=== PATIENT | male | born 1980 | race African-American/Black ===

== ENCOUNTER 2020-10-09 18:51 | Inpatient (IN) ==
[2020-10-09] MEDS ORDERED: fentaNYL citrate 100 MCG/2 ML VIAL IV PRN (19:00)
[2020-10-09] MEDS ORDERED: SODIUM CHLORIDE 0.9% 1000ML 1,000 ML IV SCH (19:00)
[2020-10-09 19:16] LABS: Basophils # (auto) 0.01 K/uL (0-0.2); Basophils % (auto) 0.2 %; Eosinophils # (auto) 0.08 K/uL (0-0.5); Eosinophils % (auto) 1.8 %; Hematocrit (blood only) 46.6 % (42-52); Hemoglobin 15.9 g/dL (14.0-18.0); Lymphocytes # (auto) 1.33 K/uL (1.2-3.4); Lymphocytes % (auto) 29.6 %; Mean Corpuscular Hemoglobin 29.9 pg (25-34); Mean Corpuscular Hgb Conc 34.1 g/dL (32-36); Mean Corpuscular Volume 87.8 fL (80-100); Mean Platelet Volume 11.6 fL (7.4-10.4); Monocytes # (auto) 1.03 K/uL (0.11-0.59); Monocytes % (auto) 22.9 %; Neutrophils # (auto) 2.04 K/uL (1.4-6.5); Neutrophils % (auto) 45.5 %; Platelet Count 225 K/uL (130-400); RDW Coefficient of Variation 13.6 % (11.5-14.5); RDW Standard Deviation 43.9 fL (36.4-46.3); Red Blood Count 5.31 M/uL (4.7-6.1); White Blood Count 4.49 K/uL (4.8-10.8)
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
[2020-10-09 19:27] LABS: INR 1.1 (0.9-1.1); Partial Thromboplastin Ratio 1.1
[2020-10-09 19:38] LABS: Alanine Aminotransferase 31 U/L (12-78); Albumin Level 3.9 gm/dl (3.4-5.0); Aspartate Aminotransferase 17 U/L (15-37); BUN Creatinine Ratio 7.9 (10-20); Blood Urea Nitrogen 9 mg/dl (7-18); Calcium 9.2 mg/dl (8.5-10.1); Carbon Dioxide 30 mmol/L (21-32); Chloride 107 mmol/L (98-107); Creatinine Clr Calc Pharmacy 75.6 ml/min; Est GFR (African American) 97.1; Est GFR (Non-African American) 83.8; Glucose 81 mg/dl (70-99); Lipase 82 U/L (73-393); Sodium 139 mmol/L (136-145)
[2020-10-09] MEDS ORDERED: OPTIRAY 350 500ml IV ONE (19:41)
[2020-10-09 19:52] LABS: Albumin Globulin Ratio 0.9 (0.9-2); Alkaline Phosphatase 66 U/L (45-117); Bilirubin,Total 0.9 mg/dl (0.2-1); Globulin 4.4 gm/dl (2.5-4.0); Total Protein 8.3 gm/dl (6.4-8.2); Troponin I < 0.015 ng/ml (0-0.045)
--- NOTE | 2020-10-09 19:54 | CT Scan Report ---
CT OF THE HEAD WITHOUT CONTRAST CLINICAL HISTORY: syncope COMPARISON STUDY: No previous studies for comparison. TECHNIQUE: Helical axial images of the head were obtained without IV contrast. Automated exposure con trol was utilized for the study. A dose lowering technique was utilized adhering to the principles o f ALARA. FINDINGS: No acute intracranial hemorrhage, midline shift or mass effect is present. The ventricular system is unremarkable. The basal cisterns are patent. No extra-axial collections are present. There are no findings to suggest acute dural sinus thrombosis or acute territorial infarct. No significant calvarial abnormalities are present. Visualized portions of the sinuses and mastoid air cells are francisco ar. IMPRESSION: 1. No acute intracranial findings. 2. No calvarial fracture. ACT 112: Negative or not required by law. Electronically signed by: Philip King M.D. 10/09/2020 7:53 PM
--- NOTE | 2020-10-09 19:57 | CT Scan Report ---
CT OF THE CERVICAL SPINE WITHOUT CONTRAST CLINICAL HISTORY: Syncope. COMPARISON STUDY: No previous studies for comparison. TECHNIQUE: Helical axial images of the cervical spine were obtained without IV contrast. Sagittal a nd coronal reconstructions were viewed. Automated exposure control was utilized for the study. A do se lowering technique was utilized adhering to the principles of ALARA. FINDINGS: There is reversal of the normal cervical lordosis. Vertebral body heights are maintained. N o acute cervical spine fracture or subluxation is present. There is no prevertebral edema. Facet join ts are intact. Mild multilevel disc space narrowing and moderate anterior osteophytosis of the cervi timoteo spine is noted. IMPRESSION: No acute cervical spine fracture or subluxation. ACT 112: Negative or not required by law. Electronically signed by: Philip King M.D. 10/09/2020 7:56 PM
[2020-10-09] MEDS ORDERED: ONDANSETRON INJ 2 MG/ML 2 ML VIAL IV STA (20:00)
[2020-10-09] MEDS ORDERED: cefTRIAXone SODIUM 1,000 MG/50 ML BAG IV STA (20:20)
[2020-10-09] MEDS ORDERED: PANTOprazole 40 MG in SYRINGE 0 ML IV ONE (20:20)
[2020-10-09] MEDS ORDERED: FAMOTIDINE 20MG IV PUSH 20 MG/5 ML SYR IV STA (20:20)
[2020-10-09] MEDS ORDERED: ONDANSETRON INJ 2 MG/ML 2 ML VIAL IV PRN (21:20)
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
[2020-10-09 21:40] LABS: Influenza A virus by PCR Negative (Neg); Influenza B virus by PCR Negative (Neg); RSV by PCR Negative (Neg); SARS CoV2 RNA(COVID-19) InHosp NEGATIVE (Negative)
[2020-10-09 22:50] LABS: Appearance Urine Clear (Clear); Bilirubin Urine Negative (Negative); Blood Urine Negative (Negative); Color Urine Yellow; Glucose Urine UA Negative (Negative); Ketones Urine Negative (Negative); Leukocyte Esterase Urine Negative (Negative); Nitrite Urine Negative (Negative); Protein Urine Negative (Negative); Specific Gravity Urine > 1.045 (1.000-1.030); Urobilinogen Urine Negative (Negative); pH Urine 5.5 (4.5-7.5)
[2020-10-09] MEDS ORDERED: LEVALBUTEROL TARTRATE 15 GM HFA.AER.AD INH PRN (23:13)
[2020-10-09] MEDS: LACTATED RINGER'S 1,000 ML IV SCH (23:19)
[2020-10-10 06:21] LABS: Eosinophils # (auto) 0.09 K/uL (0-0.5); Eosinophils % (auto) 1.9 %; Hematocrit (blood only) 44.8 % (42-52); Hemoglobin 15.1 g/dL (14.0-18.0); Immature Granulocytes # (auto) 0.01 K/uL (0.00-0.02); Immature Granulocytes % (auto) 0.2 %; Lymphocytes # (auto) 1.14 K/uL (1.2-3.4); Lymphocytes % (auto) 24.5 %; Mean Corpuscular Hemoglobin 29.8 pg (25-34); Mean Corpuscular Hgb Conc 33.7 g/dL (32-36); Mean Corpuscular Volume 88.5 fL (80-100); Mean Platelet Volume 11.4 fL (7.4-10.4); Monocytes # (auto) 1.05 K/uL (0.11-0.59); Monocytes % (auto) 22.6 %; Neutrophils # (auto) 2.36 K/uL (1.4-6.5); Neutrophils % (auto) 50.8 %; Platelet Count 216 K/uL (130-400); RDW Coefficient of Variation 13.7 % (11.5-14.5); RDW Standard Deviation 44.7 fL (36.4-46.3); Red Blood Count 5.06 M/uL (4.7-6.1); White Blood Count 4.65 K/uL (4.8-10.8)
--- NOTE | 2020-10-10 07:18 | CT Scan Report ---
CT ANGIOGRAPHY OF THE CHEST, PULMONARY EMBOLUS PROTOCOL CLINICAL HISTORY: Syncope. Evaluate for pulmonary embolus. COMPARISON STUDY: No previous studies for comparison. TECHNIQUE: Following IV administration of 106 mL of Optiray, helical axial images of the chest were o btained utilizing the pulmonary embolus protocol. Maximal intensity projections and sagittal and cor onal reformats were viewed on an independent 3D workstation. IV contrast was administered without co mplication. Automated exposure control was utilized for the study. A dose lowering technique was ut ilized adhering to the principles of ALARA. CT DOSE: 1541.13 mGy.cm FINDINGS: No pulmonary emboli are identified. There is no thoracic aortic dissection. The size of th e heart is normal. There is no pericardial effusion. No enlarged axillary, mediastinal or hilar lymph nodes are present. No pneumothorax or pleural effusion is noted. There is no consolidation. No acute fracture is identified within visualized portions of the bony thorax. IMPRESSION: 1. No pulmonary emboli identified. 2. No acute process within the chest. ACT 112: Negative or not required by law. Electronically signed by: Philip King M.D. 10/10/2020 7:16 AM
--- NOTE | 2020-10-10 07:22 | CT Scan Report ---
CT OF THE ABDOMEN AND PELVIS WITH CONTRAST CLINICAL HISTORY: GI bleed. Low back pain. Syncope. COMPARISON STUDY: None. TECHNIQUE: Following IV administration of 106 mL of Optiray, axial images of the abdomen and pelvis w ere obtained from the lung bases to the proximal femurs. Images were reviewed in the axial, sagittal, and coronal planes. IV contrast was administered without complication. Automated exposure control w as utilized for the study. A dose lowering technique was utilized adhering to the principles of ARNOLD Sims. FINDINGS: No pneumatosis, free air or portal venous gas is present. The liver, spleen, adrenal glands , kidneys and pancreas are unremarkable. There is no biliary or pancreatic ductal dilatation. There i s no peripancreatic or pericholecystic infiltration. There is no hydronephrosis. Bowel anastomoses ar e noted. There is no evidence for a bowel obstruction. There is no lymphadenopathy. The appendix is u nremarkable. Note is made of mucosal enhancement and wall thickening of the colon and rectum with pro minent adjacent vessels. The findings suggest a nonspecific proctocolitis. There is no abscess. Sensi tivity for detection of bowel mucosal lesions is diminished given CT technique but none are identifie d. There is no acute fracture within the visualized skeletal structures. IMPRESSION: 1. Mucosal enhancement and wall thickening with evidence for hyperemia of the colon and rectum. The f indings represent a nonspecific proctocolitis, likely infectious or inflammatory in etiology. 2. No bowel obstruction. 3. No acute traumatic findings within the abdomen or pelvis. ACT 112: Negative or not required by law. Electronically signed by: Philip King M.D. 10/10/2020 7:21 AM
[2020-10-10] MEDS ORDERED: ACETAMINOPHEN 500 MG TAB PO PRN (07:27)
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
[2020-10-10] MEDS: FLUTICASONE FUROATE 200MCG 14 PUFFS/INHALER INH SCH (08:36)
[2020-10-10] MEDS: LACTATED RINGER'S 1,000 ML IV SCH (08:36)
[2020-10-10] MEDS ORDERED: PANTOprazole 40 MG in SYRINGE 0 ML IV SCH (09:00)
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
--- NOTE | 2020-10-10 11:44 | Electrocardiogram Report ---
Test Reason : Blood Pressure : / mmHG Vent. Rate : 073 BPM Atrial Rate : 073 BPM P-R Int : 148 ms QRS Dur : 082 ms QT Int : 366 ms P-R-T Axes : 059 073 013 degrees QTc Int : 403 ms Poor data quality, interpretation may be adversely affected Normal sinus rhythm Normal ECG No previous ECGs available Confirmed by Edward Person ([id number]) on 10/10/2020 11:44:27 AM Referred By: Birgit Grijalva Confirmed By:Edward Person
[2020-10-10] MEDS: PANTOprazole 40 MG TAB PO SCH (15:54)
[2020-10-11 07:11] LABS: Basophils # (auto) 0.02 K/uL (0-0.2); Basophils % (auto) 0.4 %; Eosinophils # (auto) 0.24 K/uL (0-0.5); Eosinophils % (auto) 5.4 %; Hematocrit (blood only) 43.5 % (42-52); Hemoglobin 14.6 g/dL (14.0-18.0); Immature Granulocytes # (auto) 0.04 K/uL (0.00-0.02); Immature Granulocytes % (auto) 0.9 %; Lymphocytes % (auto) 35.8 %; Mean Corpuscular Hemoglobin 29.1 pg (25-34); Mean Corpuscular Hgb Conc 33.6 g/dL (32-36); Mean Corpuscular Volume 86.7 fL (80-100); Mean Platelet Volume 11.6 fL (7.4-10.4); Monocytes # (auto) 1.01 K/uL (0.11-0.59); Monocytes % (auto) 22.6 %; Neutrophils # (auto) 1.56 K/uL (1.4-6.5); Neutrophils % (auto) 34.9 %; Platelet Count 205 K/uL (130-400); RDW Coefficient of Variation 13.7 % (11.5-14.5); Red Blood Count 5.02 M/uL (4.7-6.1); White Blood Count 4.47 K/uL (4.8-10.8)
--- NOTE | 2020-10-11 07:21 | Discharge Summary ---
Date of Service October 11, 2020 Admission HPI Per Admitting Provider Albin Damian is a 40yo male with history of asthma and GERD presenting after syncopal event. Patient is a current resident of [facility]. He reports that this afternoon he was standing by his bunk when he became dizzy and cold/clammy. His cell mate said that he passed out and hit his head. Uncertain how long he was down. Patient reports he has been having bloody bowel movements for the last two days as well as diarrhea. He has been having lower abdominal cramping which is sometimes relieved with bowel movements. He is currently fasting for amish purposes and eats after but states that he will get diarrhea sometimes after eating. He has also been having nausea with frequent vomiting. He reports vomiting 4 times yesterday. Non-bloody/nonbilious until hematemesis witnessed today. ER Course: Ceftriaxone, Protonix, Pepcid, Zofran, NSS, Fentanyl Admission Exam Per Admitting Provider General: patient resting comfortably, NAD, non-toxic in appearance, AA&O x 4 Skin: warm, dry, intact, no rashes or lesions, abdominal scarring HEENT: NC/AT, PERRL, EOMI, anicteric sclera, conjunctiva without injection, external ear normal to inspection and nontender, nares patent, dry mucus membranes, dentition intact, no oropharyngeal lesions, neck supple, trachea midline, no LAD, no thyromegaly, no JVD Heart: +S1/S2, regular, no m/r/g Lungs: equal air entry bilaterally, no rales/rhonchi/wheezes Abd: +BS, soft, tender in lower abdomen with voluntary guarding, slight epigastric tenderness, no masses/organomegaly/ascites Ext: warm, 2+ pulses in UE/LE bilaterally, no clubbing/cyanosis or edema Neuro: nonfocal, patient AA&O x 4, speech intact, no facial droop, moving all extremities on command with equal strength 5/5 Principal Diagnosis Syncope Discharge Exam Constitutional WD/WN, vitals as above cooperative; no acute distress Eyes + anicteric sclerae ENMT external ear and nose normal, oropharynx normal Neck normal visual inspection and trachea midline Respiratory normal respiratory effort, lungs clear to auscultation Cardiovascular RRR, no murmur, no edema Heart Sounds: normal S1 and normal S2 Gastrointestinal (Abdomen) normal bowel sounds, soft, nontender, no hepatosplenomegaly Skin no rashes, warm and dry Psychiatric A+Ox3, euthymic affect Discharge Data Allergies Allergy/AdvReac Type Severity Reaction Status Date / Time No Known Allergies Allergy Unverified 10/09/20 19:25 Consultations 10/09/20 21:14 ED Decision to Admit Stat 10/09/20 21:20 Consult Gastroenterology Routine Ordered Studies 10/09/20 19:00 CT abd pelvis IV con only Urgent CT angio chest PE protocol Urgent CT cervical spine wo con Stat 10/09/20 19:01 CT head/brain wo con Stat Hospital Course (1) Syncope: 40yo male presenting after syncopal event. Patient has clinical picture of inflammatory/infectious acute GI illness with current amish fasting for [employer] and at a boot camp/strenuous activity required correctional facility. Syncope: resolved - Suspect volume depletion from GI illness both diarrhea and vomiting, fasting for limiting ability to maintain normal fluid status causing orthostatic syncope. - orthostatic VS were positive on admission - To our knowledge he has a structurally normal heart, no cardiac murmurs, EKG is unremarkable with QRS=82 and OJz=722. Telemetry monitoring without signs of arrhythmia. No suspicion of seizures (neurogenic origin). Unlikely to be medication induced, as patient is not on any anti-hypertensives, anti-anginals, or anti-depressants. - Patient was treated with IV fluids, no further syncopal episodes Bright red blood per rectum: ongoing - suspect secondary to an infectious inflammatory process such as campylobactor, salmonella. Normal platelet level excluded serious shigella or hemorrhagic E coli infection. Norovirus is plausible, although not typically inflammatory. - c. diff neg. fecal WBCs present, stool culture pending at the time of discharge. - no antibiotics were given - patient continued to pass blood streaked stools through discharge - GI consulted, recommending colonoscopy as outpatient (see below) Hematemesis - Witnessed episode of bright red emesis during admission - Recent frequent emesis from GI illness as noted above - suspect secondary to Aixa Arora tear, esophagitis, gastritis, ulcer peptic vs duodenal. IBD remains on the differential in setting of proctitis (noted on abdominal/pelvic CT scan) as well. - Patient does not drink EtOH or take NSAIDS (making PUD less likely) - Hgb remained stable at 14.6 - continue Protonix 40mg qam - GI consultation placed, recommending EGD and colonoscopy as outpatient. Please call [facility] to set up these procedures. Must have done in next 1-2 weeks. - Please repeat CBC on 10/15/20. Asthma - No active symptoms/complaints - Albuterol PRN (2) Bright red blood per rectum: (3) Hematemesis: (4) Asthma: Total Time Total Time Spent Total Time Spent (In Minutes): <30 Discharge Plan Discharge Items Patient Disposition: [facility] Reason For Visit: SYNCOPE, GIB Discharge Diagnosis: syncope Condition on Discharge: Good Activity: Resume your previous activity Non-emergency contact: Primary Care Provider Call non-emergency contact if: your symptoms worsen Follow-up/Referrals: Birgit Grijalva [Primary Care Provider] - Diet: Regular Addtl Attending Provider Instructions: 40yo male presenting after syncopal event. Patient has clinical picture of inflammatory/infectious acute GI illness with current amish fasting for and at a boot camp/strenuous activity required correctional facility. Syncope: resolved - Suspect volume depletion from GI illness both diarrhea and vomiting, fasting for limiting ability to maintain normal fluid status causing orthostatic syncope. - orthostatic VS were positive on admission - To our knowledge he has a structurally normal heart, no cardiac murmurs, EKG is unremarkable with QRS=82 and GVe=667. Telemetry monitoring without signs of arrhythmia. No suspicion of seizures (neurogenic origin). Unlikely to be medication induced, as patient is not on any anti-hypertensives, anti-anginals, or anti-depressants. - Patient was treated with IV fluids, no further syncopal episodes Bright red blood per rectum: ongoing - suspect secondary to an infectious inflammatory process such as campylobactor, salmonella. Normal platelet level excluded serious shigella or hemorrhagic E coli infection. Norovirus is plausible, although not typically inflammatory. - c. diff neg. fecal WBCs present, stool culture pending at the time of discharge. - no antibiotics were given - patient continued to pass blood streaked stools through discharge - GI consulted, recommending colonoscopy as outpatient (see below) Hematemesis - Witnessed episode of bright red emesis during admission - Recent frequent emesis from GI illness as noted above - suspect secondary to Aixa Arora tear, esophagitis, gastritis, ulcer peptic vs duodenal. IBD remains on the differential in setting of proctitis (noted on abdominal/pelvic CT scan) as well. - Patient does not drink EtOH or take NSAIDS (making PUD less likely) - Hgb remained stable at 14.6 - continue Protonix 40mg qam - Recommend he try to consume 80 ounces of water daily, and also begin Miralax 1 capfull, daily. - GI consultation placed, recommending EGD and colonoscopy as outpatient. Please call [facility] to set up these procedures. Must have done in next 1-2 weeks. - Please repeat CBC on 10/15/20. Asthma - No active symptoms/complaints - Albuterol PRN Pending Studies at Discharge: No Stand-Alone Forms: My [facility] Skilled Items Patient informed of condition?: Yes Discharge Level of Care: Other Communicable Disease: No Discharge Prognosis: Stable Lines: None Urinary Catheter: No Medications and DC Order Prescriptions: New pantoprazole 40 mg Tablet,Delayed Release (Dr/Ec) 40 mg PO QAM 30 Days Qty: 30 RF: 0 Continued levalbuterol tartrate [Xopenex HFA] 45 mcg/actuation Hfa Aerosol Inhaler 2 inh INHALATION QID PRN (Reason: Shortness Of Breath) RF: 0 [place]ves[place] 80 mcg/actuation Hfa Aerosol Inhaler 1 puff INHALATION BID RF: 0 Discharge Orders: Discharge Order (Routine); Ordered 10/11/20 Ordered By: Lisa Veliz Admission Data Admit Date/Time: 10/09/20 21:21 Attending Provider: Miko Joe Admit Provider: Nancy Mitchell Primary Care Provider: Birgit Grijalva Other Providers: Nancy Mitchell ; Juan Martínez ; Criselda Fiore Other Interventions: Discharge Summary Assessment (RN) Last Done: 10/11/20 13:55 Supervising Physician Co-Signing Physician Notes I personally examined the patient and verified all pugh points of history and exam, discussed case, and agree with decision making with Dr Veliz. Ongoing lower abdominal pain, has to strain to have stools, blood mixed with stool ongoing. Eating well. Anxious about leaving the hospital. Resident physician reached out to GI, to ensure that scopes will be scheduled as an outpatient. Vitals noted, in general he is awake and alert pleasantly anxious but otherwise no distress. HEENT normocephalic atraumatic mucous membranes moist. Breathing unlabored no accessory muscle use good effort. Skin shows no rashes no pallor or icterus. Neuro shows no focal deficits. Abdomen is soft mildly distended with a little lower abdominal tenderness no guarding no rebound no rigidity. Syncopelikely dehydration as much is anything, initially also concern on bleeding, but given how completely hemodynamically stable he has been this may have played little role, if any, and his syncopal event. Better hydrated, eating and drinking well. Bright red blood per rectumongoing for days, not tachycardic, hemoglobin quite stable. Suspect this is likely hemorrhoidal, he gives a history quite consistent with constipation. MiraLAX, reassurance, close follow-up, outpatient scopes. To be safe we would ask that he have a CBC checked again in about 48 to 72 hours, sooner if he has any worsening. Discussed with patient extensively, does appear stable for discharge, tried to offer reassurance and explanation as best I could. Stable for discharge, otherwise as above. Resident Activity Tracking Resident Involvement: Resident Care Provided Care Provided: Adult Hospital Medicine
[2020-10-11 07:48] LABS: Albumin Globulin Ratio 0.7 (0.9-2); Albumin Level 3.2 gm/dl (3.4-5.0); BUN Creatinine Ratio 7.5 (10-20); Bilirubin,Total 0.5 mg/dl (0.2-1); Calcium 8.4 mg/dl (8.5-10.1); Creatinine Clr Calc Pharmacy 74.2 ml/min; Globulin 4.4 gm/dl (2.5-4.0); Potassium 3.2 mmol/L (3.5-5.1); Total Protein 7.6 gm/dl (6.4-8.2)
[2020-10-11] MEDS: FLUTICASONE FUROATE 200MCG 14 PUFFS/INHALER INH SCH (08:52)
[2020-10-11] MEDS: PANTOprazole 40 MG TAB PO SCH (08:52)
[2020-10-11] MEDS ORDERED: POTASSIUM CHLORIDE CRTAB 20 MEQ TABCR PO STA (08:55)
[2020-10-11 09:50] LABS: iSTAT Creatinine 1.1 mg/dl (0.6-1.3); iSTAT Hemoglobin 16.7 g/dl (14.0-18.0); iSTAT Ionized Calcium 1.2 mmol/l (1.12-1.32); iSTAT Potassium 3.9 mmol/L (3.3-5.0)
--- NOTE | 2020-10-11 18:06 | Billing Data ---
Date of Service October 11, 2020 Coding Level of Care Code D/C Day Management <30 mins
== END 2020-10-11 15:55 | DRG 640 ==
LOC: ED 18:51 → 2W 21:21 → SUATTDRO 21:21 → 2W 22:46